=== PATIENT | female | born 1960 | race Caucasian/White ===

== ENCOUNTER 2018-02-08 17:21 | Inpatient (IN) | payer MEDICAID ==
[~2018-02-08] VITALS: Ht 154.9 cm; Wt 69.9 kg
[~2018-02-08 17:21] MED LIST: ALPR2TAB2; METH40TA12
[2018-02-08] MEDS ORDERED: ONDANSETRON HCL 4MG/2ML VIAL IV STA (17:53)
[2018-02-08] MEDS ORDERED: SODIUM CHLORIDE 0.9% 1,000 ML IV ONE (17:53)
[2018-02-08] MEDS ORDERED: LORAZEPAM 2MG/ML CPJ IV ONE (18:00)
[2018-02-08 18:56] LABS: BASOPHILS % 0.4 % (0.0-2.0); EOSINOPHILS % 0.2 % (0.0-5.0); HEMATOCRIT. 40.8 % (36.0-48.0); HEMOGLOBIN. 14.2 g/dL (12.0-16.0); LYMPHOCYTES % 12.9 % (20.0-50.0); MEAN CORPUSCULAR HEMOGLOBIN 34.3 pg (28.0-32.0); MEAN CORPUSCULAR VOLUME 98.5 fL (81.0-99.0); MONOCYTES % 11.5 % (2.0-8.0); PLATELET 126 x1000/uL (130-400); RED BLOOD CELL COUNT 4.14 mill/uL (4.2-5.4)
[2018-02-08 19:03] LABS: CHLORIDE 96 mEq/L (98-107); INR 1.2; PROTHROMBIN TIME 12.5 sec (9.4-11.6)
[2018-02-08 19:07] LABS: AMMONIA 37 uMol/L (<32); ETHANOL BLOOD < 10 mg/dL
[2018-02-08 19:10] LABS: HCG SCREEN NEGATIVE
[2018-02-08 19:12] LABS: CREATINE KINASE 359 IU/L (26-192)
[2018-02-08 19:15] LABS: PHENOBARBITAL < 2.1 ug/mL (15.0-40.0)
[2018-02-08] MEDS ORDERED: POTASSIUM CHLORIDE 20MEQ TABLET SR PO ONE (19:15)
[2018-02-08 19:39] LABS: CARBAMAZEPINE < 0.5 ug/mL (4-12)
[2018-02-08 20:06] LABS: CLARITY URINE CLEAR (CLEAR); COLOR URINE YELLOW (YELLOW); KETONES URINE 1+ (NEGATIVE); LEUKOCYTE ESTERASE URINE NEGATIVE (NEGATIVE); NITRITE URINE NEGATIVE (NEGATIVE); OCCULT BLOOD URINE 3+ (NEGATIVE); PH URINE 7.5 (4.5-8.0); PROTEIN URINE 2+ (NEGATIVE); SPECIFIC GRAVITY URINE 1.014 (1.005-1.030)
[2018-02-08 20:19] LABS: *AMPHETAMINES SCREEN URINE NEGATIVE (NEGATIVE); *BARBITURATES SCREEN URINE NEGATIVE (NEGATIVE); *BENZODIAZEPINES SCREEN URINE NEGATIVE (NEGATIVE); *COCAINE SCREEN URINE PRESUMTIVE POSITIVE (NEGATIVE); OPIATES URINE SCREEN PRESUMTIVE POSITIVE (NEGATIVE); PHENCYCLIDINE URINE SCREEN NEGATIVE (NEGATIVE)
[2018-02-08 20:20] LABS: CANNABINOID URINE SCREEN NEGATIVE (NEGATIVE)
[2018-02-08 20:24] LABS: METHADONE URINE SCREEN PRESUMTIVE POSITIVE (NEGATIVE)
[2018-02-08] MEDS ORDERED: ASPIRIN 325MG EC TABLET PO ONE (20:30)
[2018-02-08] MEDS ORDERED: CLONIDINE 0.2MG TABLET PO ONE (21:00)
[2018-02-08] MEDS ORDERED: LORAZEPAM 2MG/ML CPJ IV NR (22:15)
[2018-02-08] MEDS ORDERED: LEVETIRACETAM 500MG PREMIX 100 ML IV NR (22:15)
[2018-02-09] VITALS (8 sets, daily range): BP systolic 90–174; BP diastolic 53–113
[2018-02-09] MEDS ORDERED: ACETAMINOPHEN 325MG TABLET PO PRN (00:45)
[2018-02-09] MEDS ORDERED: MAGNESIUM/ALUMINUM HYDROXIDE/SIMETHICONE 30ML UDC PO PRN (00:45)
[2018-02-09] MEDS ORDERED: NA PHOS,M-B/NA PHOS,DI-BA ENEMA 118ML PR PRN (00:45)
[2018-02-09] MEDS ORDERED: GUAIFENESIN 200MG/10ML SUGAR FREE UDC PO PRN (00:45)
[2018-02-09] MEDS ORDERED: ONDANSETRON HCL 4MG/2ML VIAL IV PRN (00:45)
[2018-02-09] MEDS ORDERED: DIPHENHYDRAMINE 50MG/ML VIAL IV PRN (00:45)
[2018-02-09] MEDS ORDERED: CLONIDINE 0.1MG TABLET PO PRN (00:45)
[2018-02-09] MEDS ORDERED: ACETAMINOPHEN 650MG/20.3ML UDC GT PRN (00:45)
[2018-02-09] MEDS ORDERED: ACETAMINOPHEN 650MG SUPP PR PRN (00:45)
[2018-02-09] MEDS ORDERED: IPRATROPIUM/ALBUTEROL 0.5-3(2.5)MG/3ML NEB INH PRN (00:45)
[2018-02-09] MEDS ORDERED: HYDROCODONE/ACETAMINOPHEN 5/325MG TABLET PO PRN (00:45)
[2018-02-09] MEDS: SODIUM CHLORIDE 0.45% 1,000 ML IV SCH ×2 (01:26→18:02)
[2018-02-09] MEDS: SODIUM CHLORIDE 0.9% INJ 3ML FLUSH IVF SCH ×3 (05:34→21:20)
[2018-02-09 08:08] LABS: CREATINE KINASE MB FRACTION 27.7 ng/mL (0.5-3.6)
[2018-02-09] MEDS: ENOXAPARIN 40MG/0.4ML SYR SUBCUT SCH (09:07)
[2018-02-09] MEDS: LOSARTAN POTASSIUM 25 MG TABLET PO SCH (10:15)
[2018-02-09] MEDS: AMLODIPINE 5MG TABLET PO SCH ×2 (10:15→21:00)
[2018-02-09] MEDS: ASPIRIN 81MG EC TABLET PO SCH (11:28)
[2018-02-09 12:11] LABS: HEMATOCRIT 37.8 % (36.0-48.0); MEAN CORPUSCULAR HEMOGLOBIN 34.2 pg (28.0-32.0); MEAN CORPUSCULAR VOLUME 99.2 fL (81.0-99.0); PLATELET 119 x1000/uL (130-400); RED BLOOD CELL COUNT 3.81 mill/uL (4.2-5.4); RED CELL DISTRIBUTION WIDTH 14.3 % (11.6-14.6)
[2018-02-09 12:24] LABS: CHLORIDE 102 mEq/L (98-107)
[2018-02-09 12:52] LABS: HEPATITIS B SURFACE ANTIGEN NEGATIVE
[2018-02-09 13:20] LABS: HEPATITIS B CORE AB IGM NEGATIVE
[2018-02-09 13:22] LABS: HEPATITIS A AB IGM NEGATIVE (NEGATIVE)
[2018-02-09 16:20] LABS: CREATINE KINASE MB FRACTION 22.7 ng/mL (0.5-3.6)
[2018-02-09] MEDS: LORAZEPAM 2MG/ML CPJ IV PRN (23:01)
[2018-02-10 04:49] VITALS: BP 108/75
[2018-02-10] MEDS: SODIUM CHLORIDE 0.9% INJ 3ML FLUSH IVF SCH ×3 (05:18→23:35)
[2018-02-10] MEDS: LORAZEPAM 2MG/ML CPJ IV PRN ×3 (06:41→20:24)
[2018-02-10 07:31] LABS: CHLORIDE 103 mEq/L (98-107)
[2018-02-10 07:33] LABS: HEMATOCRIT. 41.7 % (36.0-48.0); HEMOGLOBIN. 14.6 g/dL (12.0-16.0); MEAN CORPUSCULAR HEMOGLOBIN 35.1 pg (28.0-32.0); MEAN CORPUSCULAR VOLUME 100.2 fL (81.0-99.0); MEAN PLATELET VOLUME 7.7 fl (7.4-10.4); PLATELET 108 x1000/uL (130-400); RED BLOOD CELL COUNT 4.17 mill/uL (4.2-5.4); RED CELL DISTRIBUTION WIDTH 13.8 % (11.6-14.6)
[2018-02-10 07:42] LABS: LDL CHOLESTEROL 59 mg/dL (5-100)
[2018-02-10 07:44] LABS: HDL CHOLESTEROL 47 mg/dL (40-59)
[2018-02-10 08:32] VITALS: BP 113/77
[2018-02-10] MEDS: LOSARTAN POTASSIUM 25 MG TABLET PO SCH (09:26)
[2018-02-10] MEDS: DOCUSATE SODIUM 100MG CAPSULE PO PRN (09:26)
[2018-02-10] MEDS: AMLODIPINE 5MG TABLET PO SCH ×2 (09:26→21:00)
[2018-02-10] MEDS: ENOXAPARIN 40MG/0.4ML SYR SUBCUT SCH (09:27)
[2018-02-10] MEDS: ASPIRIN 81MG EC TABLET PO SCH (09:27)
[2018-02-10] MEDS: HYDROCODONE/ACETAMINOPHEN 10/325MG TABLET PO PRN ×2 (09:34→20:24)
[2018-02-10 11:01] LABS: PLATELET ESTIMATE DECREASED
[2018-02-10] MEDS ORDERED: LOSA25TA3 PO (12:22)
[2018-02-10] MEDS ORDERED: ASPI-1158 PO (12:22)
[2018-02-10] MEDS ORDERED: AMLO5TAB88 PO (12:22)
[2018-02-10] MEDS: SODIUM CHLORIDE 0.45% 1,000 ML IV SCH (12:26)
[2018-02-10 12:41] VITALS: BP 130/77
[2018-02-10 16:42] VITALS: BP 105/67
[2018-02-10 20:00] VITALS: BP 106/75
[2018-02-11] VITALS: BP 109/78
[2018-02-11] MEDS: HYDROCODONE/ACETAMINOPHEN 10/325MG TABLET PO PRN ×2 (01:59→06:16)
[2018-02-11] MEDS: LORAZEPAM 2MG/ML CPJ IV PRN ×2 (03:32→09:46)
[2018-02-11 04:00] VITALS: BP 114/82
[2018-02-11] MEDS: SODIUM CHLORIDE 0.9% INJ 3ML FLUSH IVF SCH (06:16)
[2018-02-11 08:00] VITALS: BP 131/95
[2018-02-11] MEDS: AMLODIPINE 5MG TABLET PO SCH (10:00)
[2018-02-11] MEDS: DOCUSATE SODIUM 100MG CAPSULE PO PRN (10:00)
[2018-02-11] MEDS: ASPIRIN 81MG EC TABLET PO SCH (10:00)
[2018-02-11] MEDS: ENOXAPARIN 40MG/0.4ML SYR SUBCUT SCH (10:00)
[2018-02-11] MEDS: LOSARTAN POTASSIUM 25 MG TABLET PO SCH (10:06)
[2018-02-11 12:00] VITALS: BP 126/84
[2018-02-11 12:15] LABS: BASOPHILS % 0.3 % (0.0-2.0); EOSINOPHILS % 0.4 % (0.0-5.0); HEMATOCRIT. 40.5 % (36.0-48.0); HEMOGLOBIN. 13.7 g/dL (12.0-16.0); LYMPHOCYTES % 19.4 % (20.0-50.0); MEAN CORPUSCULAR HEMOGLOBIN 33.9 pg (28.0-32.0); MEAN CORPUSCULAR VOLUME 100.3 fL (81.0-99.0); MEAN PLATELET VOLUME 6.8 fl (7.4-10.4); NEUTROPHILS % 67.9 % (40.0-76.0); PLATELET 115 x1000/uL (130-400); RED BLOOD CELL COUNT 4.04 mill/uL (4.2-5.4)
[2018-02-11 12:21] LABS: AMMONIA 19 uMol/L (<32)
[2018-02-11 12:46] LABS: CHLORIDE 104 mEq/L (98-107)
[2018-02-11 12:53] VITALS: BP 126/84
== END 2018-02-11 13:30 | disposition home or self-care (01) | DRG 812 ==
LOC: ER 17:21 → 6WST 20:39 → ENRESERV 21:15
PROVIDERS: ADMIT Family Medicine; ATTEND Family Medicine
DX: T50.901A Poisoning by unspecified drugs, medicaments and biological substances, accidental (unintentional), initial encounter (principal); I21.4 Non-ST elevation (NSTEMI) myocardial infarction; G93.40 Encephalopathy, unspecified; E72.20 Disorder of urea cycle metabolism, unspecified; T40.5X1A Poisoning by cocaine, accidental (unintentional), initial encounter; M62.82 Rhabdomyolysis; E87.1 Hypo-osmolality and hyponatremia; I10 Essential (primary) hypertension; F14.10 Cocaine abuse, uncomplicated; E87.6 Hypokalemia; D72.819 Decreased white blood cell count, unspecified; B19.20 Unspecified viral hepatitis C without hepatic coma; E87.5 Hyperkalemia; F10.10 Alcohol abuse, uncomplicated; F17.210 Nicotine dependence, cigarettes, uncomplicated; R74.0 Nonspecific elevation of levels of transaminase and lactic acid dehydrogenase [LDH]; F14.188 Cocaine abuse with other cocaine-induced disorder; I73.9 Peripheral vascular disease, unspecified; F11.90 Opioid use, unspecified, uncomplicated; Z79.82 Long term (current) use of aspirin; Z79.899 Other long term (current) drug therapy; Y92.89 Other specified places as the place of occurrence of the external cause
CPT/HCPCS: 36415; 71045; 80053; 80061; 80076; 80156; 80165; 80184; 80185; 80305; 80307; 80329; 81003; 82140; 82550; 82553; 83735; 84443; 84484; 84703; 85025; 85027; 85610; 86705; 86709; 86803; 87340; 93005; 93306; 96361; 96374; 96375; 99285; G0482; J1650; J1953; J2060; J2405; J7030; J7040

== ENCOUNTER 2018-03-04 04:04 | Emergency (ER) | payer MEDICAID ==
[~2018-03-04] VITALS: Ht 162.6 cm; Wt 68.0 kg
[~2018-03-04 04:04] MED LIST changes: -ALPR2TAB2; +AMLO5TAB88 PO; +ASPI-1158 PO; +LOSA25TA3 PO; -METH40TA12
[2018-03-04 06:33] LABS: CLARITY URINE CLEAR (CLEAR); COLOR URINE YELLOW (YELLOW); KETONES URINE NEGATIVE (NEGATIVE); LEUKOCYTE ESTERASE URINE NEGATIVE (NEGATIVE); NITRITE URINE NEGATIVE (NEGATIVE); OCCULT BLOOD URINE 3+ (NEGATIVE); PROTEIN URINE NEGATIVE (NEGATIVE); SPECIFIC GRAVITY URINE 1.013 (1.005-1.030)
[2018-03-04] MEDS ORDERED: KETOROLAC 30MG/ML VIAL IV STA (06:55)
[2018-03-04] MEDS ORDERED: SODIUM CHLORIDE 0.9% 1,000 ML IV ONE (06:55)
[2018-03-04] MEDS ORDERED: ONDANSETRON HCL 4MG/2ML VIAL IV STA (06:55)
[2018-03-04] MEDS ORDERED: LORAZEPAM 2MG/ML CPJ IV ONE (07:00)
[2018-03-04 07:12] LABS: HEMATOCRIT. 35.1 % (36.0-48.0); HEMOGLOBIN. 12.1 g/dL (12.0-16.0); MEAN CORPUSCULAR HEMOGLOBIN 33.5 pg (28.0-32.0); MEAN CORPUSCULAR VOLUME 97.1 fL (81.0-99.0); MEAN PLATELET VOLUME 5.8 fl (7.4-10.4); PLATELET 107 x1000/uL (130-400); RED BLOOD CELL COUNT 3.61 mill/uL (4.2-5.4); RED CELL DISTRIBUTION WIDTH 12.9 % (11.6-14.6)
[2018-03-04 07:18] LABS: CHLORIDE 104 mEq/L (98-107)
[2018-03-04 07:19] LABS: INR 1.3; PROTHROMBIN TIME 13.5 sec (9.4-11.6)
[2018-03-04 07:22] LABS: ETHANOL BLOOD 29 mg/dL
[2018-03-04 07:41] LABS: PLATELET ESTIMATE DECREASED
[2018-03-04] MEDS ORDERED: VANCOMYCIN 1 G PREMIX 200 ML IV NR (10:30)
[2018-03-04 11:08] LABS: *AMPHETAMINES SCREEN URINE NEGATIVE (NEGATIVE); *BARBITURATES SCREEN URINE NEGATIVE (NEGATIVE); *BENZODIAZEPINES SCREEN URINE PRESUMTIVE POSITIVE (NEGATIVE); *COCAINE SCREEN URINE PRESUMTIVE POSITIVE (NEGATIVE)
[2018-03-04 11:09] LABS: CANNABINOID URINE SCREEN NEGATIVE (NEGATIVE); METHADONE URINE SCREEN NEGATIVE (NEGATIVE); OPIATES URINE SCREEN PRESUMTIVE POSITIVE (NEGATIVE); PHENCYCLIDINE URINE SCREEN NEGATIVE (NEGATIVE)
[2018-03-04] MEDS ORDERED: LORAZEPAM 2MG/ML CPJ IV SCH (11:45)
[2018-03-04 13:23] VITALS: BP 122/84
== END 2018-03-04 13:23 | disposition home or self-care (01) ==
LOC: ER 04:04
DX: F11.20 Opioid dependence, uncomplicated (principal); L03.114 Cellulitis of left upper limb; L03.113 Cellulitis of right upper limb; F13.20 Sedative, hypnotic or anxiolytic dependence, uncomplicated; F14.20 Cocaine dependence, uncomplicated; I10 Essential (primary) hypertension; F17.200 Nicotine dependence, unspecified, uncomplicated; F10.20 Alcohol dependence, uncomplicated; Y90.1 Blood alcohol level of 20-39 mg/100 ml
CPT/HCPCS: 36415; 80053; 80305; 81003; 85025; 85610; 96365; 96366; 96375; 96376; 99285; G0482; J1885; J2060; J2405; J3370; J7030; Z7610; 99284

== ENCOUNTER 2019-01-02 02:31 | Inpatient (IN) | payer MEDICAID ==
[~2019-01-02] VITALS: Ht 165.1 cm; Wt 64.1 kg
[2019-01-02] VITALS (63 sets, daily range): BP systolic 99–151; BP diastolic 47–95
[2019-01-02] MEDS ORDERED: ONDANSETRON HCL 4MG/2ML INJ IV STA (06:15)
[2019-01-02] MEDS ORDERED: LEVETIRACETAM 1000MG/100ML 100 ML IV ONE (06:15)
[2019-01-02] MEDS ORDERED: LORAZEPAM 2MG/ML CPJ IV ONE (06:15)
[2019-01-02] MEDS ORDERED: MORPHINE SULFATE 4 MG/ML CPJ (NOT FOR IM USE) IV STA (06:15)
[2019-01-02] MEDS ORDERED: SODIUM CHLORIDE 0.9% 1,000 ML IV ONE (06:15)
[2019-01-02 06:57] LABS: BASOPHILS % 0.2 % (0.0-2.0); HEMATOCRIT. 33.5 % (36.0-48.0); HEMOGLOBIN. 10.8 g/dL (12.0-16.0); LYMPHOCYTES % 9.2 % (20.0-50.0); MEAN CORPUSCULAR HEMOGLOBIN 26.4 pg (28.0-32.0); MEAN CORPUSCULAR VOLUME 81.7 fL (81.0-99.0); MEAN PLATELET VOLUME 5.8 fl (7.4-10.4); MONOCYTES % 7.4 % (2.0-8.0); NEUTROPHILS % 83.2 % (40.0-76.0); PLATELET 197 x1000/uL (130-400); RED BLOOD CELL COUNT 4.11 mill/uL (4.2-5.4); RED CELL DISTRIBUTION WIDTH 17.7 % (11.6-14.6)
[2019-01-02] MEDS ORDERED: NICARDIPINE 100 MG in SODIUM CHLORIDE 0.9% 60 ML IV PRN (07:00)
[2019-01-02 07:03] LABS: CHLORIDE 97 mEq/L (98-107); INR 1.1; PROTHROMBIN TIME 11.5 sec (9.6-11.0)
[2019-01-02 07:06] LABS: ETHANOL BLOOD 51 mg/dL
[2019-01-02] MEDS: NICARDIPINE 100 MG in SODIUM CHLORIDE 0.9% 60 ML IV PRN ×2 (07:10→12:29)
[2019-01-02] MEDS: DEXAMETHASONE 4MG/ML 1ML VIAL IV SCH ×4 (07:14→23:59)
[2019-01-02 07:19] LABS: CLARITY URINE CLEAR (CLEAR); COLOR URINE YELLOW (YELLOW); KETONES URINE 1+ (NEGATIVE); LEUKOCYTE ESTERASE URINE NEGATIVE (NEGATIVE); NITRITE URINE NEGATIVE (NEGATIVE); OCCULT BLOOD URINE 1+ (NEGATIVE); PROTEIN URINE TRACE (NEGATIVE); SPECIFIC GRAVITY URINE 1.009 (1.005-1.030); UROBILINOGEN URINE 0.2 E.U./dL (0.2-1.0)
[2019-01-02 07:42] LABS: *AMPHETAMINES SCREEN URINE NEGATIVE (NEGATIVE); *BARBITURATES SCREEN URINE NEGATIVE (NEGATIVE); *BENZODIAZEPINES SCREEN URINE NEGATIVE (NEGATIVE); *COCAINE SCREEN URINE PRESUMTIVE POSITIVE (NEGATIVE); OPIATES URINE SCREEN PRESUMTIVE POSITIVE (NEGATIVE)
[2019-01-02 07:43] LABS: CANNABINOID URINE SCREEN NEGATIVE (NEGATIVE); METHADONE URINE SCREEN PRESUMTIVE POSITIVE (NEGATIVE); PHENCYCLIDINE URINE SCREEN NEGATIVE (NEGATIVE)
[2019-01-02] MEDS ORDERED: ONDANSETRON HCL 4MG/2ML INJ IV PRN (08:00)
[2019-01-02] MEDS ORDERED: FAMOTIDINE 20MG/2ML VIAL IV SCH (08:00)
[2019-01-02] MEDS ORDERED: DEXTROSE 50% WATER 50ML SYRINGE IV PRN (08:00)
[2019-01-02] MEDS: MORPHINE SULFATE 2 MG/ML CPJ (NOT FOR IM USE) IV PRN ×2 (08:12→16:01)
[2019-01-02] MEDS: DEXT 5%/LACTATED RINGERS 1,000 ML IV SCH (08:13)
[2019-01-02] MEDS ORDERED: POTASSIUM CHLORIDE INJ 40 MEQ in DEXT 5% WATER 250 ML IV NR (09:00)
[2019-01-02] MEDS ORDERED: LEVETIRACETAM 500MG PREMIX 100 ML IV SCH (09:00)
[2019-01-02 09:55] LABS: CREATINE KINASE 262 IU/L (26-192)
[2019-01-02] MEDS ORDERED: LIDOCAINE HCL/EPINEPHRINE 1%-EPI 1:100,000 20 ML VIAL ONE (10:03)
[2019-01-02] MEDS ORDERED: BACITRACIN 50,000 UNITS/VIAL ONE (10:03)
[2019-01-02] MEDS ORDERED: THROMBIN (BOVINE) 5000 UNITS/VIAL TOP ONE (10:03)
[2019-01-02] MEDS ORDERED: NORMAL SALINE 0.9% 10 ML SYR ONE (10:03)
[2019-01-02] MEDS ORDERED: BACITRACIN 15GM TUBE TOP ONE (10:04)
[2019-01-02] MEDS ORDERED: POVIDONE-IODINE OINT 28.4GM TOP ONE (10:04)
[2019-01-02] MEDS ORDERED: IPRATROPIUM/ALBUTEROL 0.5-3(2.5)MG/3ML NEB HHN PRN (10:15)
[2019-01-02] MEDS ORDERED: FENTANYL CITRATE/PF 50MCG/ML 2ML VIAL ONE (10:28)
[2019-01-02] MEDS ORDERED: NEOSTIGMINE METHYLSULFATE 1MG/ML 10 ML VIAL ONE (10:28)
[2019-01-02] MEDS ORDERED: DEXAMETHASONE 4MG/ML 1ML VIAL ONE (10:29)
[2019-01-02] MEDS ORDERED: GLYCOPYRROLATE 0.2 MG/ML 2ML VIAL ONE ×2 (10:29→11:49)
[2019-01-02] MEDS ORDERED: ONDANSETRON HCL 4MG/2ML INJ ONE (10:29)
[2019-01-02] MEDS ORDERED: MIDAZOLAM HCL 2 MG/2 ML VIAL ONE (10:29)
[2019-01-02] MEDS ORDERED: PROPOFOL 200MG/20ML VIAL IV ONE (10:29)
[2019-01-02] MEDS ORDERED: ROCURONIUM BROMIDE 10MG/ML VIAL 5ML IV ONE (10:29)
[2019-01-02] MEDS: BLOOD SUGAR DIAGNOSTIC STRIP TEST SCH ×3 (11:30→21:00)
[2019-01-02] MEDS ORDERED: SODIUM CHLORIDE 0.9% 10ML VIAL ONE (11:51)
[2019-01-02] MEDS ORDERED: HYDROMORPHONE HCL/PF 2MG/ML (OR) ONE (11:51)
[2019-01-02] MEDS ORDERED: CEFAZOLIN SODIUM 1000MG/VIAL ONE (11:52)
[2019-01-02] MEDS ORDERED: LABETALOL HCL 5MG/ML VIAL 20ML IV ONE (11:53)
[2019-01-02] MEDS: CEFTRIAXONE 1 G PREMIX 50 ML IV SCH (13:31)
[2019-01-02] MEDS: INSULIN LISPRO 100 UNITS/ML SUBCUT SCH ×3 (14:02→21:00)
[2019-01-02] MEDS: MORPHINE SULFATE 4 MG/ML CPJ (NOT FOR IM USE) IV PRN ×2 (17:15→20:59)
[2019-01-02] MEDS: LEVETIRACETAM 500MG in SODIUM CHLORIDE 0.9% 100ML IV SCH (20:59)
[2019-01-03] VITALS (62 sets, daily range): BP systolic 99–163; BP diastolic 49–118
[2019-01-03] MEDS: MORPHINE SULFATE 4 MG/ML CPJ (NOT FOR IM USE) IV PRN ×7 (02:59→18:15)
[2019-01-03] MEDS: DEXT 5%/LACTATED RINGERS 1,000 ML IV SCH ×2 (04:39→23:00)
[2019-01-03 05:56] LABS: PARTIAL THROMBOPLASTIN TIME 27.5 sec (23.4-31.0)
[2019-01-03 05:57] LABS: CHLORIDE 103 mEq/L (98-107)
[2019-01-03] MEDS: DEXAMETHASONE 4MG/ML 1ML VIAL IV SCH ×3 (06:02→18:15)
[2019-01-03] MEDS: BLOOD SUGAR DIAGNOSTIC STRIP TEST SCH ×4 (06:13→21:11)
[2019-01-03] MEDS: INSULIN LISPRO 100 UNITS/ML SUBCUT SCH ×4 (06:15→21:10)
[2019-01-03] MEDS ORDERED: PERMETHRIN 5% CREAM 60GM TOP SCH (09:00)
[2019-01-03] MEDS: LEVETIRACETAM 500MG in SODIUM CHLORIDE 0.9% 100ML IV SCH ×2 (09:09→21:09)
[2019-01-03 09:22] LABS: HEMATOCRIT. 30.8 % (36.0-48.0); HEMOGLOBIN. 9.9 g/dL (12.0-16.0); MEAN CORPUSCULAR HEMOGLOBIN 26.2 pg (28.0-32.0); MEAN CORPUSCULAR VOLUME 81.2 fL (81.0-99.0); MEAN PLATELET VOLUME 6.5 fl (7.4-10.4); PLATELET 220 x1000/uL (130-400); RED BLOOD CELL COUNT 3.79 mill/uL (4.2-5.4); RED CELL DISTRIBUTION WIDTH 18.3 % (11.6-14.6)
[2019-01-03] MEDS ORDERED: METHADONE HCL 10MG TABLET PO SCH (10:15)
[2019-01-03] MEDS: METHADONE HCL 10MG TABLET PO SCH (11:25)
[2019-01-03] MEDS: CEFTRIAXONE 1 G PREMIX 50 ML IV SCH (11:25)
[2019-01-03 11:37] LABS: PLATELET ESTIMATE NORMAL
[2019-01-04] VITALS (53 sets, daily range): BP systolic 114–161; BP diastolic 67–126
[2019-01-04] MEDS: DEXAMETHASONE 4MG/ML 1ML VIAL IV SCH ×3 (00:54→12:31)
[2019-01-04 05:23] LABS: CHLORIDE 101 mEq/L (98-107); HEMOGLOBIN. 9.3 g/dL (12.0-16.0); LYMPHOCYTES % 7.2 % (20.0-50.0); MEAN CORPUSCULAR HEMOGLOBIN 26.3 pg (28.0-32.0); MEAN PLATELET VOLUME 6.6 fl (7.4-10.4); MONOCYTES % 6.1 % (2.0-8.0); NEUTROPHILS % 86.7 % (40.0-76.0); PLATELET 192 x1000/uL (130-400); RED BLOOD CELL COUNT 3.54 mill/uL (4.2-5.4); RED CELL DISTRIBUTION WIDTH 18.4 % (11.6-14.6)
[2019-01-04] MEDS: BLOOD SUGAR DIAGNOSTIC STRIP TEST SCH ×4 (07:18→21:42)
[2019-01-04] MEDS: INSULIN LISPRO 100 UNITS/ML SUBCUT SCH ×4 (07:36→21:00)
[2019-01-04 09:06] LABS: IMMUNOGLOBULIN A 670 mg/dL (87-352); IMMUNOGLOBULIN G 3085 mg/dL (700-1600); IMMUNOGLOBULIN M 180 mg/dL (26-217)
[2019-01-04] MEDS: LEVETIRACETAM 500MG in SODIUM CHLORIDE 0.9% 100ML IV SCH ×2 (09:50→22:04)
[2019-01-04] MEDS: METHADONE HCL 10MG TABLET PO SCH (09:51)
[2019-01-04] MEDS: LOSARTAN POTASSIUM 25 MG TABLET PO SCH (10:39)
[2019-01-04] MEDS: AMLODIPINE 5MG TABLET PO SCH ×2 (10:40→21:33)
[2019-01-04] MEDS ORDERED: BISACODYL 5MG TABLET PO PRN (10:45)
[2019-01-04] MEDS: CEFTRIAXONE 1 G PREMIX 50 ML IV SCH (11:02)
[2019-01-04] MEDS: DOCUSATE SODIUM 250MG CAPSULE PO SCH (11:02)
[2019-01-04] MEDS ORDERED: HYDRALAZINE 20MG/ML VIAL IV PRN (16:15)
[2019-01-04] MEDS: MORPHINE SULFATE 4 MG/ML CPJ (NOT FOR IM USE) IV PRN (18:01)
[2019-01-05] VITALS (26 sets, daily range): BP systolic 126–159; BP diastolic 75–110
[2019-01-05 05:02] LABS: BASOPHILS % 0.1 % (0.0-2.0); EOSINOPHILS % 0.1 % (0.0-5.0); HEMATOCRIT. 32.3 % (36.0-48.0); HEMOGLOBIN. 10.3 g/dL (12.0-16.0); LYMPHOCYTES % 24.5 % (20.0-50.0); MEAN CORPUSCULAR HEMOGLOBIN 26.4 pg (28.0-32.0); MEAN CORPUSCULAR VOLUME 82.3 fL (81.0-99.0); MEAN PLATELET VOLUME 6.6 fl (7.4-10.4); MONOCYTES % 9.8 % (2.0-8.0); NEUTROPHILS % 65.5 % (40.0-76.0); PLATELET 198 x1000/uL (130-400); RED BLOOD CELL COUNT 3.92 mill/uL (4.2-5.4); RED CELL DISTRIBUTION WIDTH 18.6 % (11.6-14.6)
[2019-01-05] MEDS: MORPHINE SULFATE 4 MG/ML CPJ (NOT FOR IM USE) IV PRN ×5 (05:09→21:07)
[2019-01-05 05:13] LABS: CHLORIDE 103 mEq/L (98-107)
[2019-01-05] MEDS: BLOOD SUGAR DIAGNOSTIC STRIP TEST SCH ×4 (06:25→21:00)
[2019-01-05] MEDS: INSULIN LISPRO 100 UNITS/ML SUBCUT SCH ×4 (06:29→22:58)
[2019-01-05] MEDS: LEVETIRACETAM 500MG in SODIUM CHLORIDE 0.9% 100ML IV SCH ×2 (08:09→23:06)
[2019-01-05] MEDS: CEFTRIAXONE 1 G PREMIX 50 ML IV SCH (08:09)
[2019-01-05] MEDS: DOCUSATE SODIUM 250MG CAPSULE PO SCH (08:10)
[2019-01-05] MEDS: AMLODIPINE 5MG TABLET PO SCH ×2 (08:10→22:56)
[2019-01-05] MEDS: LOSARTAN POTASSIUM 25 MG TABLET PO SCH (08:10)
[2019-01-05] MEDS: METHADONE HCL 10MG TABLET PO SCH (08:11)
[2019-01-05] MEDS ORDERED: LACTULOSE 20G/30ML UDC PO SCH (10:30)
[2019-01-05] MEDS: FOLIC ACID 1MG TABLET PO SCH (12:37)
[2019-01-05] MEDS: THIAMINE HCL 100MG TABLET PO SCH (12:37)
[2019-01-05] MEDS: MULTIVITAMINS,THER W-MINERALS TABLET PO SCH (12:37)
[2019-01-06] VITALS: BP 146/87
[2019-01-06] MEDS: MORPHINE SULFATE 4 MG/ML CPJ (NOT FOR IM USE) IV PRN ×7 (00:09→23:44)
[2019-01-06 04:00] VITALS: BP 147/75
[2019-01-06] MEDS: BLOOD SUGAR DIAGNOSTIC STRIP TEST SCH ×4 (06:32→20:24)
[2019-01-06 06:48] LABS: BASOPHILS % 0.1 % (0.0-2.0); EOSINOPHILS % 0.4 % (0.0-5.0); HEMATOCRIT. 37.2 % (36.0-48.0); HEMOGLOBIN. 11.8 g/dL (12.0-16.0); LYMPHOCYTES % 23.4 % (20.0-50.0); MEAN CORPUSCULAR VOLUME 81.7 fL (81.0-99.0); MEAN PLATELET VOLUME 6.3 fl (7.4-10.4); MONOCYTES % 13.6 % (2.0-8.0); NEUTROPHILS % 62.5 % (40.0-76.0); PLATELET 240 x1000/uL (130-400); RED BLOOD CELL COUNT 4.55 mill/uL (4.2-5.4); RED CELL DISTRIBUTION WIDTH 18.2 % (11.6-14.6)
[2019-01-06 07:04] LABS: CHLORIDE 100 mEq/L (98-107)
[2019-01-06 08:00] VITALS: BP 126/75
[2019-01-06] MEDS: METHADONE HCL 10MG TABLET PO SCH (08:13)
[2019-01-06] MEDS: DOCUSATE SODIUM 250MG CAPSULE PO SCH (08:13)
[2019-01-06] MEDS: LOSARTAN POTASSIUM 25 MG TABLET PO SCH (08:13)
[2019-01-06] MEDS: MULTIVITAMINS,THER W-MINERALS TABLET PO SCH (08:13)
[2019-01-06] MEDS: THIAMINE HCL 100MG TABLET PO SCH (08:13)
[2019-01-06] MEDS: FOLIC ACID 1MG TABLET PO SCH (08:14)
[2019-01-06] MEDS: AMLODIPINE 5MG TABLET PO SCH ×2 (08:14→21:20)
[2019-01-06] MEDS: INSULIN LISPRO 100 UNITS/ML SUBCUT SCH ×4 (08:18→21:19)
[2019-01-06] MEDS: LEVETIRACETAM 500MG in SODIUM CHLORIDE 0.9% 100ML IV SCH ×2 (08:59→20:03)
[2019-01-06] MEDS: CEFTRIAXONE 1 G PREMIX 50 ML IV SCH (10:44)
[2019-01-06 12:13] VITALS: BP 143/88
[2019-01-06 15:36] VITALS: BP 125/83
[2019-01-06 20:00] VITALS: BP 146/86
[2019-01-07] VITALS: BP_SYST 128; BP_SYST 138; BP_DIAS 66; BP_DIAS 78
[2019-01-07] MEDS: MORPHINE SULFATE 4 MG/ML CPJ (NOT FOR IM USE) IV PRN ×2 (03:04→06:26)
[2019-01-07 04:00] VITALS: BP 138/66
[2019-01-07] MEDS: BLOOD SUGAR DIAGNOSTIC STRIP TEST SCH ×4 (07:53→20:29)
[2019-01-07 08:00] VITALS: BP 122/84
[2019-01-07] MEDS: LEVETIRACETAM 500MG in SODIUM CHLORIDE 0.9% 100ML IV SCH (08:36)
[2019-01-07] MEDS: FOLIC ACID 1MG TABLET PO SCH (08:37)
[2019-01-07] MEDS: MULTIVITAMINS,THER W-MINERALS TABLET PO SCH (08:37)
[2019-01-07] MEDS: METHADONE HCL 10MG TABLET PO SCH (08:37)
[2019-01-07] MEDS: THIAMINE HCL 100MG TABLET PO SCH (08:37)
[2019-01-07] MEDS: DOCUSATE SODIUM 250MG CAPSULE PO SCH (08:37)
[2019-01-07] MEDS: AMLODIPINE 5MG TABLET PO SCH ×2 (08:37→20:19)
[2019-01-07] MEDS: LOSARTAN POTASSIUM 50 MG TABLET PO SCH (08:37)
[2019-01-07] MEDS: INSULIN LISPRO 100 UNITS/ML SUBCUT SCH ×4 (08:43→21:03)
[2019-01-07] MEDS: LEVETIRACETAM 500MG TABLET PO SCH ×2 (11:11→20:10)
[2019-01-07 12:00] VITALS: BP 109/81
[2019-01-07] MEDS: HYDROCODONE/ACETAMINOPHEN 5/325MG TABLET PO PRN ×3 (12:58→22:24)
[2019-01-07 16:00] VITALS: BP 94/62
[2019-01-07] MEDS ORDERED: HYDRALAZINE 10 MG in SODIUM CHLORIDE 0.9% 49.5 ML IV PRN (17:00)
[2019-01-08] MEDS: HYDROCODONE/ACETAMINOPHEN 5/325MG TABLET PO PRN ×2 (02:33→06:41)
[2019-01-08] MEDS: BLOOD SUGAR DIAGNOSTIC STRIP TEST SCH ×2 (06:42→12:41)
[2019-01-08] MEDS: INSULIN LISPRO 100 UNITS/ML SUBCUT SCH ×2 (07:37→13:15)
[2019-01-08 08:00] VITALS: BP 111/70
[2019-01-08] MEDS: AMLODIPINE 5MG TABLET PO SCH (08:33)
[2019-01-08] MEDS: THIAMINE HCL 100MG TABLET PO SCH (08:33)
[2019-01-08] MEDS: DOCUSATE SODIUM 250MG CAPSULE PO SCH (08:33)
[2019-01-08] MEDS: LEVETIRACETAM 500MG TABLET PO SCH (08:33)
[2019-01-08] MEDS: LOSARTAN POTASSIUM 50 MG TABLET PO SCH (08:33)
[2019-01-08] MEDS: FOLIC ACID 1MG TABLET PO SCH (08:33)
[2019-01-08] MEDS: MULTIVITAMINS,THER W-MINERALS TABLET PO SCH (08:33)
[2019-01-08] MEDS: METHADONE HCL 10MG TABLET PO SCH (08:33)
[2019-01-08 12:00] VITALS: BP 111/76
[2019-01-08 12:22] VITALS: BP 113/68
== END 2019-01-08 20:30 | disposition home or self-care (01) | DRG 20 ==
LOC: ER 02:31 → MICUSO 07:19 → EDBEDREQSVC 07:23 → MICUNO 01-03 07:50 → 6EST 01-05 14:30
PROVIDERS: ADMIT Internal Medicine; ATTEND Internal Medicine
PROC: 30233K1 Transfusion of Nonautologous Frozen Plasma into Peripheral Vein, Percutaneous Approach (ICD-10-PCS; 2019-01-02)
PROC: 30233R1 Transfusion of Nonautologous Platelets into Peripheral Vein, Percutaneous Approach (ICD-10-PCS; 2019-01-02)
PROC: 00C40ZZ Extirpation of Matter from Intracranial Subdural Space, Open Approach (ICD-10-PCS; principal; 2019-01-05)
PROC: 0NU007Z Supplement Skull with Autologous Tissue Substitute, Open Approach (ICD-10-PCS; 2019-01-05)
PROC: 4A107BD Monitoring of Intracranial Pressure, Via Natural or Artificial Opening (ICD-10-PCS; 2019-01-05)
DX: S06.5X9A Traumatic subdural hemorrhage with loss of consciousness of unspecified duration, initial encounter (principal); G93.49 Other encephalopathy; E44.0 Moderate protein-calorie malnutrition; E87.8 Other disorders of electrolyte and fluid balance, not elsewhere classified; K70.9 Alcoholic liver disease, unspecified; E87.6 Hypokalemia; E87.1 Hypo-osmolality and hyponatremia; D64.9 Anemia, unspecified; I10 Essential (primary) hypertension; F10.239 Alcohol dependence with withdrawal, unspecified; B19.20 Unspecified viral hepatitis C without hepatic coma; F14.10 Cocaine abuse, uncomplicated; K59.00 Constipation, unspecified; T38.0X5A Adverse effect of glucocorticoids and synthetic analogues, initial encounter; R73.9 Hyperglycemia, unspecified; Z68.23 Body mass index [BMI] 23.0-23.9, adult; V19.88XA Pedal cyclist (driver) (passenger) injured in other specified transport accidents, initial encounter; Y93.I9 Activity, other involving external motion; Y92.488 Other paved roadways as the place of occurrence of the external cause; Y99.8 Other external cause status; Y92.89 Other specified places as the place of occurrence of the external cause; Z79.899 Other long term (current) drug therapy; Z79.82 Long term (current) use of aspirin
CPT/HCPCS: 31500; 36415; 71045; 80048; 80305; 80320; 82550; 82784; 82962; 83036; 85384; 86334; 86850; 86900; 86927; 86945; 93005; 93970; 94002; 96374; 96375; 97116; 97162; 97166; 97530; 97535; 99285; C1713; C1758; J0360; J0690; J0696; J1100; J1170; J1815; J1953; J2060; J2250; J2270; J2405; J2704; J2710; J3010; J3480; J3490; J7030; J7040; J7050; J7060; J7120; P9017; P9034; A4315; G0480

== ENCOUNTER 2019-12-14 17:42 | Emergency (ER) | payer MEDICAID ==
[~2019-12-14] VITALS: Ht 165.1 cm; Wt 65.0 kg
[2019-12-14] MEDS ORDERED: BACITRACIN ZINC OINT UDPKT TOP ONE (21:00)
[2019-12-14 21:22] VITALS: BP 166/110
== END 2019-12-14 21:23 | disposition home or self-care (01) ==
LOC: ER 17:42
DX: L03.115 Cellulitis of right lower limb (principal); I10 Essential (primary) hypertension; F14.10 Cocaine abuse, uncomplicated; F11.10 Opioid abuse, uncomplicated; F10.20 Alcohol dependence, uncomplicated; Y90.0 Blood alcohol level of less than 20 mg/100 ml; Z79.899 Other long term (current) drug therapy
CPT/HCPCS: 99283